=== PATIENT | male | born 1975 | race American Indian/Alaskan Native ===

== ENCOUNTER 2016-10-28 08:10 | Day surgery (SDC) | payer OTHER ==
[~2016-10-28 08:10] MED LIST: DIPRIVAN 10 MG/ML IV ONE; SUBLIMAZE ONE; XYLOCAINE MPF 2% ONE
--- NOTE | 2016-10-28 08:59 | Anesthesia Consultation ---
Anesthesia Consult and Med Hx Date of service: 10/28/16 - Airway Anesthetic Teeth Evaluation: Good, Chipped (8,9 chipped) ROM Head & Neck: Adequate Mental/Hyoid Distance: Adequate Mallampati Class: Class II Intubation Access Assessment: Probably Good - Pulmonary Exam CTA: Yes - Cardiac Exam Cardiac Exam: RRR - Pre-Operative Health Status Proposed Anesthetic Plan: General - Pulmonary Hx Smoking: Yes (STOPPED X 6 MONTHS- ONLY 3 PER DAY) SOB: No Hx Sleep Apnea: No (SON PRE SCREEN HIGH RISK) - Cardiovascular System Hx Hypertension: Yes (RECENT DX , JUST STARTED ON MEDS) - Central Nervous System Hx Psychiatric Problems: No - Endocrine Hx Non-Insulin Dependent Diabetes: Yes (not on any meds) - Other Systems Hx Alcohol Use: Yes (OCCASIONAL) Hx Substance Use: Yes (2 MONTHS AGO/MARIJ[place]NA) Hx Cancer: No Hx Obesity: Yes
[2016-10-28] MEDS ORDERED: NACL 0.9% 1000 ML 1,000 ML IV SCH (09:00)
--- NOTE | 2016-10-28 09:00 | Anesthesia Day of Surgery ---
Anesthesia Day of Surgery - Day of Surgery Patient Examined: Yes Patient H&P Reviewed: Yes Patient is NPO: Yes
[2016-10-28] MEDS ORDERED: DILAUDID IV PRN (09:02)
[2016-10-28] MEDS ORDERED: VERSED IV NR (09:05)
[2016-10-28] MEDS ORDERED: PEPCID IV NR (09:05)
[2016-10-28] MEDS ORDERED: ROCEPHIN/NS 1 GM/50 ML 1 GM/50 ML BAG IV ONE (09:15)
--- NOTE | 2016-10-28 10:30 | XRay Report ---
ABDOMEN AP History: Left kidney stone. Findings: The CT dated 02/23/16 was reviewed. A 6 mm stone at the inferior pole of the left kidney is identified. The previously described 1 cm stone in the inferior right kidney is not clearly identified on radiograph. There is also a subtle 5 mm density in the left paraspinal region at the level of L3-4. I suppose this could represent a ureteral stone. Pelvic phleboliths are noted. The bowel gas pattern is unremarkable. Impression: Left nephrolithiasis as described.
[2016-10-28] MEDS ORDERED: ZOFRAN ONE (12:31)
--- NOTE | 2016-10-28 12:35 | Short Stay Summary ---
Short Stay Documentation Date of service: 10/28/16 - Allergies and Medications Current Medications: Allergies No Known Allergies Allergy (Verified 01/28/16 00:13) Home Medications Medication Instructions Recorded Confirmed Last Taken Type metFORMIN [Glucophage] 500 mg PO QDAY 01/28/16 10/28/16 1 Month Ago History Acetaminophen [Tylenol Arthritis] 325 mg PO PRN PRN 03/30/16 10/27/16 10/27/16 History Omeprazole 40 mg PO PRN PRN 03/30/16 10/27/16 10/27/16 History Tamsulosin [Flomax] 0.4 mg PO DAILY 10/27/16 10/27/16 10/27/16 History oxyCODONE [Roxicodone] 5 mg PO Q6HR PRN 10/27/16 10/27/16 10/27/16 History amLODIPine [Norvasc] 10 mg PO DAILY 10/28/16 10/28/16 10/28/16 07:45 History Active Medications Famotidine (Pepcid) 20 mg IV PREOP NR Stop: 10/28/16 23:00 Last Admin: 10/28/16 09:39 Dose: 20 mg Hydromorphone HCl (Dilaudid) 0.5 mg IV Q5MIN PRN PRN Reason: Pain, Moderate (4-6) Stop: 10/29/16 09:03 Last Admin: 10/28/16 09:38 Dose: 0.5 mg Sodium Chloride (Nacl 0.9% 1000 Ml) 1,000 mls @ 125 mls/hr IV DIRECT JOSEFA Stop: 10/28/16 23:59 Last Admin: 10/28/16 09:15 Dose: 125 mls/hr Midazolam HCl (Versed) 2 mg IV PREOP NR Stop: 10/28/16 23:59 Last Admin: 10/28/16 09:35 Dose: 2 mg - Brief post op/procedure progress note Date of procedure: 10/28/16 Pre-op diagnosis: left uret eswl Post-op diagnosis: same Procedure: left uret eswl Anesthesia: GETA Findings: fair vis Surgeon: EMILY LINDO Estimated blood loss: minimal Specimen disposition: to lab Condition: stable - Hospital course Hospital course: or pacu home - Disposition Condition at discharge: Good Disposition: [id number]-01 TO HOME OR SELFCARE Short Stay Discharge Plan Activity: advance as tolerated Diet: advance as tolerated Follow up with: EMILY LINDO MD [Staff Physician] - 7 Days
--- NOTE | 2016-10-28 14:41 | Post Anesthesia Evaluation ---
- Post Anesthesia Evaluation Patient Participated: Yes Airway Patent: Yes Stable Respiratory Function: Yes Nausea/Vomiting: No Temp > 96.8F: Yes Pain Manageable: Yes Adequeate Hydration: Yes Anesthesia Complications: No
[2016-10-28 15:09] VITALS: BP 152/93
== END 2016-10-28 14:50 | disposition home or self-care (01) ==
LOC: OR 08:10
PROVIDERS: ATTEND Urology
DX: N20.1 Calculus of ureter (principal); I10 Essential (primary) hypertension; E11.9 Type 2 diabetes mellitus without complications; F12.90 Cannabis use, unspecified, uncomplicated; E66.9 Obesity, unspecified; Z68.32 Body mass index [BMI] 32.0-32.9, adult; Z98.890 Other specified postprocedural states; Z79.899 Other long term (current) drug therapy; Z79.84 Long term (current) use of oral hypoglycemic drugs; Z72.89 Other problems related to lifestyle; Z87.891 Personal history of nicotine dependence; Z83.3 Family history of diabetes mellitus; Z82.0 Family history of epilepsy and other diseases of the nervous system
CPT/HCPCS: 50590; 74000; 82962; J0696; J1170; J2250; J2405; J2704; J3010; J7030